=== PATIENT | female | born 1955 | race African-American/Black ===

== ENCOUNTER 2021-02-15 20:10 | Emergency (ER) | payer MEDICARE, MEDICAID ==
[~2021-02-15] VITALS: Ht 162.6 cm; Wt 48.0 kg
[2021-02-15 22:56] VITALS: BP 138/110
[2021-02-15] MEDS ORDERED: IBUPROFEN 600MG TABLET PO ONE (23:00)
[2021-02-15] MEDS ORDERED: HYDROCODONE/ACETAMINOPHEN 10/325MG TABLET PO ONE (23:00)
[2021-02-15] MEDS ORDERED: ONDANSETRON 4MG ODT PO ONE (23:00)
== END 2021-02-15 23:15 | disposition home or self-care (01) ==
LOC: ER 20:10
DX: M25.552 Pain in left hip (principal); Z76.5 Malingerer [conscious simulation]; Z88.6 Allergy status to analgesic agent; Z86.73 Personal history of transient ischemic attack (TIA), and cerebral infarction without residual deficits; Z87.01 Personal history of pneumonia (recurrent); Z87.442 Personal history of urinary calculi; Z91.018 Allergy to other foods
CPT/HCPCS: 99284; Q0162

== ENCOUNTER 2021-02-15 23:51 | Emergency (ER) | payer MEDICARE, MEDICAID | END 2021-02-16 01:50 | disposition left against medical advice (07) | LOC: ER 23:51 | DX: Z53.21 Procedure and treatment not carried out due to patient leaving prior to being seen by health care provider (principal) ==